=== PATIENT | female | born 1930 | race Caucasian/White ===

== ENCOUNTER 2017-12-29 16:14 | Emergency (ER) | payer MEDICARE ==
[~2017-12-29] VITALS: Ht 142.2 cm; Wt 99.8 kg
[2017-12-29 16:18] VITALS: Ht 142.2 cm; Wt 99.8 kg
[2017-12-29 17:35] LABS: BASOPHIL % 0.3 % (0-2); PLATELET COUNT 268 x10^3mcL (130-400)
[2017-12-29 17:39] LABS: RED CELL DISTRIBUTION WIDTH 16.1 % (11.5-14.5)
[2017-12-29 17:45] LABS: CALCIUM 8.1 mg/dL (8.5-10.1); CARBON DIOXIDE 21.3 mmol/L (21-32); CHLORIDE SERUM 100 mmol/L (98-107); CREATININE SERUM 1.5 mg/dL (0.6-1.0); GLUCOSE SERUM 183 mg/dL (74-106); POTASSIUM SERUM 4.8 mmol/L (3.5-5.1); SODIUM SERUM 132 mmol/L (136-145)
[2017-12-29 17:57] LABS: ALKALINE PHOSPHATASE 91 U/L (46-116); ALT/SGPT 32 U/L (14-59); AMYLASE 29 U/L (25-115); AST/SGOT 45 U/L (15-37); BILIRUBIN TOTAL 0.28 mg/dL (0.20-1.00); LIPASE 82 IU/L (73-393); MAGNESIUM 1.8 mg/dL (1.8-2.4); T4(THYROXINE) 9.8 ug/dL (4.7-13.3); TOTAL PROTEIN, SERUM 6.3 g/dL (6.4-8.2)
[2017-12-29 17:57] LABS: UA SPECIFIC GRAVITY >=1.030 (1.005-1.035); microscopic required? YES; urine erythrocyte TRACE (NEGATIVE)
[2017-12-29 18:00] LABS: ALBUMIN 2.8 g/dL (3.4-5.0); CHOLESTEROL 106 mg/dL (<200); HDL CHOLESTEROL 64 mg/dL (40-60)
[2017-12-29 18:10] LABS: AMPHETAMINE QUAL UR NONE DETECTED (NEG <=1000)
[2017-12-29 22:34] VITALS: BP 100/58
== END 2017-12-29 22:34 | disposition short-term general hospital (02) ==
LOC: ED 16:14
PROVIDERS: Emergency Medicine
DX: J81.1 Chronic pulmonary edema (principal); R06.03 Acute respiratory distress; I21.4 Non-ST elevation (NSTEMI) myocardial infarction; D64.9 Anemia, unspecified; E46 Unspecified protein-calorie malnutrition; I25.10 Atherosclerotic heart disease of native coronary artery without angina pectoris; E11.9 Type 2 diabetes mellitus without complications; I10 Essential (primary) hypertension; E66.9 Obesity, unspecified; H91.90 Unspecified hearing loss, unspecified ear; Z98.61 Coronary angioplasty status
CPT/HCPCS: 36600; 82962; 83880; 87804; J1940; J1956; J2270; J2930; J7613; J7644; Q0092